=== PATIENT | female | born 1960 | race Caucasian/White ===

== ENCOUNTER 2017-03-03 13:44 | Emergency (ER) | payer BC ==
[~2017-03-03] VITALS: Ht 167.6 cm; Wt 57.9 kg
[2017-03-03 13:54] VITALS: TEMP 36.7; Ht 167.6 cm; Wt 57.9 kg
[2017-03-03] MEDS ORDERED: BACL10TA PO (14:45)
[2017-03-03] MEDS ORDERED: TRAZ50TA35 PO (14:45)
[2017-03-03] MEDS ORDERED: TRAM-10 PO (14:45)
[2017-03-03] MEDS ORDERED: ESCI1TAB10 PO (14:45)
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
[2017-03-03 15:12] VITALS: BP 161/79; PULSE 54; O2SAT 98
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
== END 2017-03-03 15:14 | disposition home or self-care (01) ==
LOC: C.EDB 13:45 → C.EDD 15:14
DX: S06.0X0A Concussion without loss of consciousness, initial encounter (principal); W20.8XXA Other cause of strike by thrown, projected or falling object, initial encounter; Y92.22 Religious institution as the place of occurrence of the external cause; Y93.H9 Activity, other involving exterior property and land maintenance, building and construction; M54.2 Cervicalgia; M62.838 Other muscle spasm; E16.2 Hypoglycemia, unspecified; J45.909 Unspecified asthma, uncomplicated; Z85.828 Personal history of other malignant neoplasm of skin; Z90.710 Acquired absence of both cervix and uterus